=== PATIENT | male | born 1975 | race African-American/Black ===

== ENCOUNTER 2018-10-27 16:22 | Emergency (ER) | payer OTHER, SELFPAY ==
[~2018-10-27] VITALS: Ht 180.3 cm; Wt 124.1 kg
[2018-10-27 16:30] VITALS: BP 141/84
[2018-10-27] MEDS ORDERED: FAMO20 PO (16:38)
[2018-10-27] MEDS ORDERED: AMLO-512 PO (16:38)
[2018-10-27] MEDS ORDERED: MECL-111 PO (16:38)
[2018-10-27] MEDS ORDERED: TRAZ-219 PO (16:38)
[2018-10-27] MEDS ORDERED: LISI-661 PO (16:38)
[2018-10-27] MEDS ORDERED: ESCI10TA PO (16:38)
[2018-10-27] MEDS ORDERED: ATOR40TA28 PO (16:38)
[2018-10-27] MEDS ORDERED: METO25XL PO (16:38)
[2018-10-27] MEDS ORDERED: CLON-570 PO (16:38)
[2018-10-27 17:16] LABS: ANION GAP 7 mmol/L (8-16); CALCIUM, TOTAL 9.5 mg/dL (8.8-10.5); CARBON DIOXIDE 29 mmol/L (22-29); CHLORIDE 104 mmol/L (98-107); GLOMERULAR FILTR. RATE CALC > 60 mL/min (>60); GLUCOSE,RANDOM 95 mg/dL (70-110); POTASSIUM 3.7 mmol/L (3.5-5.1); SODIUM SERUM 140 mmol/L (136-145); UREA NITROGEN, BLOOD 12 mg/dL (7-18)
[2018-10-27 17:22] LABS: ALANINE AMINOTRANSFERASE 37 U/L (12-78); ALBUMIN 3.3 g/dL (3.4-5.0); ALKALINE PHOSPHATASE 140 U/L (46-116); ASPARTATE AMINOTRANSFERASE 36 U/L (15-37); BILIRUBIN,TOTAL 0.2 mg/dL (0.1-1.0); TOTAL PROTEIN, SERUM 8.1 g/dL (6.4-8.2)
[2018-10-27 17:24] LABS: BASOPHILS % (AUTO) 0.5 % (0.0-2.0); HEMATOCRIT 40.7 % (41-53); HEMOGLOBIN 13.4 g/dL (13.5-17.5); LYMPHOCYTES # (AUTO) 3.5 K/uL (1.0-4.8); LYMPHOCYTES % (AUTO) 46.4 % (22.0-44.0); MEAN CORPUSCULAR HEMOGLOBIN 26.8 pg (26.0-34.0); MEAN CORPUSCULAR HGB CONC 32.8 G/dL (31.0-37.0); MEAN CORPUSCULAR VOLUME 82 fL (80-100); MONOCYTES # (AUTO) 0.4 K/uL (0.1-1.0); MONOCYTES % (AUTO) 5.4 % (2.0-9.0); NEUTROPHILS # (AUTO) 3.4 K/uL (1.8-7.7); NEUTROPHILS % (AUTO) 44.7 % (40.0-70.0); PLATELET COUNT (AUTO) 212 K/uL (150-450); RED BLOOD CELL COUNT(AUTO) 4.99 MIL/uL (4.50-5.90); RED CELL DISTRIBUTION WIDTH 17.5 % (11.5-14.5)
== END 2018-10-27 20:15 | disposition left against medical advice (07) ==
LOC: EMS 16:22
DX: R07.9 Chest pain, unspecified (principal); Z53.21 Procedure and treatment not carried out due to patient leaving prior to being seen by health care provider
CPT/HCPCS: 93005

== ENCOUNTER 2019-04-26 15:48 | Emergency (ER) | payer OTHER ==
[~2019-04-26] VITALS: Ht 180.3 cm; Wt 131.8 kg
[~2019-04-26 15:48] MED LIST: AMLO10TA7 PO; ATOR40TA28 PO; CLON-570 PO; ESCI10TA PO; FAMO20 PO; LISI-661 PO; MECL-111 PO; METO25XL PO; TRAZ-252 PO
[2019-04-26] MEDS ORDERED: FURO20 PO (16:20)
[2019-04-26] MEDS ORDERED: OMEP20 PO (16:20)
[2019-04-26] MEDS ORDERED: OXYC-530 PO (16:20)
[2019-04-26] MEDS ORDERED: ALPR0.255 PO (16:20)
[2019-04-26] MEDS ORDERED: MONT10TA21 PO (16:20)
[2019-04-26 19:16] VITALS: BP 132/89
[2019-04-26] MEDS: OxyCODONE HCL 5 MG IR TABLET PO ONE (19:21)
== END 2019-04-26 19:21 | disposition home or self-care (01) ==
LOC: EMS 15:48
DX: S86.811A Strain of other muscle(s) and tendon(s) at lower leg level, right leg, initial encounter (principal); S76.311A Strain of muscle, fascia and tendon of the posterior muscle group at thigh level, right thigh, initial encounter; M25.561 Pain in right knee; I10 Essential (primary) hypertension; F17.210 Nicotine dependence, cigarettes, uncomplicated; Z79.899 Other long term (current) drug therapy; X50.9XXA Other and unspecified overexertion or strenuous movements or postures, initial encounter; Y93.89 Activity, other specified; Y92.89 Other specified places as the place of occurrence of the external cause; Y99.8 Other external cause status
CPT/HCPCS: 99406

== ENCOUNTER 2019-04-28 21:57 | Emergency (ER) | payer OTHER ==
[~2019-04-28 21:57] MED LIST changes: +ALPR0.255 PO; -ESCI10TA PO; -FAMO20 PO; +FURO20 PO; +MONT10TA21 PO; +OMEP20 PO; +OXYC-530 PO
== END 2019-04-28 22:30 | disposition left against medical advice (07) ==
LOC: EMS 21:58
DX: M79.606 Pain in leg, unspecified (principal); Z53.21 Procedure and treatment not carried out due to patient leaving prior to being seen by health care provider

== ENCOUNTER 2021-08-03 09:52 | Inpatient (IN) | payer OTHER ==
[~2021-08-03] VITALS: Ht 175.3 cm; Wt 132.0 kg
[~2021-08-03 09:52] MED LIST changes: +AMLO-258 PO; -AMLO10TA7 PO; -CLON-570 PO; +CLON0.1T2 PO; -LISI-661 PO; +LISI-893 PO; -MECL-111 PO; +MECL-160 PO; +MONT-35 PO; -MONT10TA21 PO; -OXYC-530 PO; +OXYC1TAB6 PO
[2021-08-03 10:32] LABS: BASOPHILS % (AUTO) 0.8 % (0.0-2.0); EOSINOPHILS % (AUTO) 1.7 % (1.0-6.0); HEMATOCRIT 40.9 % (41-53); HEMOGLOBIN 13.2 g/dL (13.5-17.5); LYMPHOCYTES # (AUTO) 2.1 K/uL (1.0-4.8); LYMPHOCYTES % (AUTO) 36.1 % (22.0-44.0); MEAN CORPUSCULAR HEMOGLOBIN 27.2 pg (26.0-34.0); MEAN CORPUSCULAR HGB CONC 32.3 G/dL (31.0-37.0); MEAN CORPUSCULAR VOLUME 84 fL (80-100); MONOCYTES # (AUTO) 0.4 K/uL (0.1-1.0); MONOCYTES % (AUTO) 6.6 % (2.0-9.0); NEUTROPHILS # (AUTO) 3.2 K/uL (1.8-7.7); NEUTROPHILS % (AUTO) 54.8 % (40.0-70.0); PLATELET COUNT (AUTO) 224 K/uL (150-450); RED BLOOD CELL COUNT(AUTO) 4.85 MIL/uL (4.50-5.90)
[2021-08-03 10:42] LABS: ANION GAP 11 mmol/L (8-16); CALCIUM, TOTAL 9.1 mg/dL (8.8-10.5); CARBON DIOXIDE 27 mmol/L (22-29); CHLORIDE 105 mmol/L (98-107); CREATININE 1.29 mg/dL (0.60-1.30); GLOMERULAR FILTR. RATE CALC > 60 mL/min (>60); GLUCOSE,RANDOM 102 mg/dL (70-110); POTASSIUM 3.6 mmol/L (3.5-5.1); SODIUM SERUM 143 mmol/L (136-145); UREA NITROGEN, BLOOD 8 mg/dL (7-18)
[2021-08-03 10:48] LABS: ALANINE AMINOTRANSFERASE 38 U/L (12-78); ALBUMIN 3.1 g/dL (3.4-5.0); ALKALINE PHOSPHATASE 125 U/L (46-116); ASPARTATE AMINOTRANSFERASE 87 U/L (15-37); BILIRUBIN,TOTAL 0.3 mg/dL (0.1-1.0); LIPASE 70 U/L (73-393)
[2021-08-03 11:05] LABS: B-TYPE NATRIURETIC PEPTIDE 7 pg/mL (0-100)
[2021-08-03] MEDS ORDERED: KETOROLAC TROMETHAMINE 30 MG/ML VIAL IVP ONE (11:30)
[2021-08-03] MEDS ORDERED: ONDANSETRON HCL 4 MG/2 ML VIAL IVP ONE ×2 (11:30→14:00)
[2021-08-03] MEDS ORDERED: ACETAMINOPHEN 500 MG TABLET PO ONE (11:30)
[2021-08-03] MEDS ORDERED: MECLIZINE HCL 25 MG TABLET PO ONE (11:30)
[2021-08-03] MEDS ORDERED: MORPHINE SULFATE 4 MG/ML SYRINGE IVP ONE (14:00)
[2021-08-03] MEDS ORDERED: ASPIRIN 325 MG TABLET PO ONE (14:00)
[2021-08-03] MEDS ORDERED: ACETAMINOPHEN 325 MG TABLET PO PRN (14:00)
[2021-08-03] MEDS ORDERED: ONDANSETRON HCL 4 MG/2 ML VIAL IVP PRN (14:00)
[2021-08-03] MEDS ORDERED: 0.9% SODIUM CHLORIDE 10 ML SYRINGE IVP PRN (14:00)
[2021-08-03] MEDS: METOPROLOL SUCCINATE 25 MG ER TABLET PO SCH (14:42)
[2021-08-03 15:08] LABS: COVID AG,FIA SOURCE NASOPHARYNGEAL
[2021-08-03] MEDS ORDERED: NITROGLYCERIN 2% (1 GM=INCH) PACKET TP ONE (16:00)
[2021-08-03 16:37] LABS: APPEARANCE,URINE CLEAR (CLEAR); GLUCOSE, URINE (UA) NEGATIVE (NEGATIVE); KETONES,URINE 15 mg/dL (NEGATIVE); LEUKOCYTE ESTERASE ,URINE NEGATIVE (NEGATIVE); NITRATE,URINE NEGATIVE (NEGATIVE); OCCULT BLOOD,URINE NEGATIVE (NEGATIVE); PROTEIN,URINE NEGATIVE (NEGATIVE)
[2021-08-03 16:39] LABS: BILIRUBIN,URINE PRELIM. POSITIVE (NEGATIVE)
[2021-08-03 16:43] LABS: BACTERIA,URINE None Seen /HPF (None Seen); RBC,URINE None Seen /HPF (0-2); WBC,URINE None Seen /HPF (0-5)
[2021-08-03 16:44] LABS: AMPHET/METH SCREEN,URINE NEGATIVE (NEGATIVE); BARBITURATE SCREEN, URINE NEGATIVE (NEGATIVE); BENZODIAZEPINES SCREEN,URINE POSITIVE (NEGATIVE); CANNABINOID SCREEN,URINE POSITIVE (NEGATIVE); COCAINE SCREEN,URINE NEGATIVE (NEGATIVE); METHADONE SCREEN, URINE NEGATIVE (NEGATIVE); OPIATE SCREEN,URINE NEGATIVE (NEGATIVE)
[2021-08-03 16:45] LABS: PHENCYCLIDINE SCREEN,URINE POSITIVE (NEGATIVE)
[2021-08-03 17:04] VITALS: BP 144/102
[2021-08-03 20:35] VITALS: BP 141/77
[2021-08-03] MEDS: TraZODone HCL 50 MG TABLET PO SCH (21:42)
[2021-08-04] VITALS (7 sets, daily range): BP systolic 127–149; BP diastolic 76–96
[2021-08-04] MEDS: LISINOPRIL 10 MG TABLET PO SCH (08:28)
[2021-08-04] MEDS: OMEPRAZOLE 20 MG CAPSULE PO SCH (08:29)
[2021-08-04] MEDS: ATORVASTATIN CALCIUM 40 MG TABLET PO SCH (08:29)
[2021-08-04] MEDS: METOPROLOL SUCCINATE 25 MG ER TABLET PO SCH (08:29)
[2021-08-04] MEDS: AmLODIPine BESYLATE 10 MG TABLET PO SCH (08:29)
[2021-08-04] MEDS: MONTELUKAST SODIUM 10 MG TABLET PO SCH (08:29)
[2021-08-04] MEDS ORDERED: CloNIDine HCL 0.1 MG TABLET PO ONE (15:45)
[2021-08-04] MEDS ORDERED: ALPR0.255 PO (16:35)
[2021-08-04] MEDS: MECLIZINE HCL 25 MG TABLET PO PRN (17:47)
[2021-08-04] MEDS: CloNIDine HCL 0.1 MG TABLET PO SCH ×2 (17:47→20:34)
[2021-08-04] MEDS: TraZODone HCL 50 MG TABLET PO SCH (20:34)
[2021-08-04] MEDS: ALPRAZolam 0.25 MG TABLET PO SCH (20:34)
[2021-08-05 07:05] VITALS: BP 134/84
[2021-08-05] MEDS: ATORVASTATIN CALCIUM 40 MG TABLET PO SCH (08:49)
[2021-08-05] MEDS: OMEPRAZOLE 20 MG CAPSULE PO SCH (08:49)
[2021-08-05] MEDS: AmLODIPine BESYLATE 10 MG TABLET PO SCH (08:49)
[2021-08-05] MEDS: CloNIDine HCL 0.1 MG TABLET PO SCH ×3 (08:50→20:16)
[2021-08-05] MEDS: ALPRAZolam 0.25 MG TABLET PO SCH ×2 (08:50→20:16)
[2021-08-05] MEDS: LISINOPRIL 10 MG TABLET PO SCH (08:50)
[2021-08-05] MEDS: FUROSEMIDE 20 MG TABLET PO SCH (08:50)
[2021-08-05] MEDS: MONTELUKAST SODIUM 10 MG TABLET PO SCH (08:50)
[2021-08-05] MEDS: METOPROLOL SUCCINATE 25 MG ER TABLET PO SCH (08:50)
[2021-08-05 11:36] VITALS: BP 119/74
[2021-08-05 15:41] VITALS: BP 129/94
[2021-08-05] MEDS: ACETAMINOPHEN 325 MG TABLET PO PRN (15:50)
[2021-08-05] MEDS: TraZODone HCL 50 MG TABLET PO SCH (20:16)
[2021-08-05 20:21] VITALS: BP 144/97
[2021-08-06 07:41] VITALS: BP 131/78
[2021-08-06] MEDS: CloNIDine HCL 0.1 MG TABLET PO SCH ×3 (09:15→19:59)
[2021-08-06] MEDS: LISINOPRIL 10 MG TABLET PO SCH (09:15)
[2021-08-06] MEDS: OMEPRAZOLE 20 MG CAPSULE PO SCH (09:15)
[2021-08-06] MEDS: AmLODIPine BESYLATE 10 MG TABLET PO SCH (09:15)
[2021-08-06] MEDS: ATORVASTATIN CALCIUM 40 MG TABLET PO SCH (09:15)
[2021-08-06] MEDS: ALPRAZolam 0.25 MG TABLET PO SCH (09:15)
[2021-08-06] MEDS: FUROSEMIDE 20 MG TABLET PO SCH (09:15)
[2021-08-06] MEDS: METOPROLOL SUCCINATE 25 MG ER TABLET PO SCH (09:20)
[2021-08-06] MEDS: MECLIZINE HCL 25 MG TABLET PO PRN (09:20)
[2021-08-06] MEDS: MONTELUKAST SODIUM 10 MG TABLET PO SCH (09:20)
[2021-08-06 15:27] VITALS: BP 131/75
[2021-08-06] MEDS: TraZODone HCL 50 MG TABLET PO SCH (19:59)
[2021-08-06] MEDS: ACETAMINOPHEN 325 MG TABLET PO PRN (20:00)
[2021-08-06 20:56] VITALS: BP 118/70
[2021-08-07 04:57] VITALS: BP 133/72
[2021-08-07 08:11] VITALS: BP 137/75
[2021-08-07] MEDS: CloNIDine HCL 0.1 MG TABLET PO SCH ×3 (08:14→21:08)
[2021-08-07] MEDS: METOPROLOL SUCCINATE 25 MG ER TABLET PO SCH (08:15)
[2021-08-07] MEDS: OMEPRAZOLE 20 MG CAPSULE PO SCH (08:15)
[2021-08-07] MEDS: ATORVASTATIN CALCIUM 40 MG TABLET PO SCH (08:15)
[2021-08-07] MEDS: FUROSEMIDE 20 MG TABLET PO SCH (08:15)
[2021-08-07] MEDS: AmLODIPine BESYLATE 10 MG TABLET PO SCH (08:15)
[2021-08-07] MEDS: MONTELUKAST SODIUM 10 MG TABLET PO SCH (08:15)
[2021-08-07] MEDS: LISINOPRIL 10 MG TABLET PO SCH (08:15)
[2021-08-07 16:24] VITALS: BP 149/104
[2021-08-07 16:57] VITALS: BP 142/69
[2021-08-07 19:59] VITALS: BP 125/75
[2021-08-07] MEDS: TraZODone HCL 50 MG TABLET PO SCH (21:08)
[2021-08-08 05:07] VITALS: BP 123/73
[2021-08-08 06:23] LABS: BASOPHILS % (AUTO) 0.2 % (0.0-2.0); EOSINOPHILS % (AUTO) 1.6 % (1.0-6.0); HEMATOCRIT 36.6 % (41-53); HEMOGLOBIN 11.8 g/dL (13.5-17.5); LYMPHOCYTES # (AUTO) 2.6 K/uL (1.0-4.8); LYMPHOCYTES % (AUTO) 36.1 % (22.0-44.0); MEAN CORPUSCULAR HEMOGLOBIN 27.1 pg (26.0-34.0); MEAN CORPUSCULAR HGB CONC 32.2 G/dL (31.0-37.0); MEAN CORPUSCULAR VOLUME 84 fL (80-100); MONOCYTES # (AUTO) 0.6 K/uL (0.1-1.0); MONOCYTES % (AUTO) 7.7 % (2.0-9.0); NEUTROPHILS % (AUTO) 54.4 % (40.0-70.0); PLATELET COUNT (AUTO) 232 K/uL (150-450); RED BLOOD CELL COUNT(AUTO) 4.35 MIL/uL (4.50-5.90); RED CELL DISTRIBUTION WIDTH 14.7 % (11.5-14.5)
[2021-08-08 06:41] LABS: ALANINE AMINOTRANSFERASE 31 U/L (12-78); ALBUMIN 2.8 g/dL (3.4-5.0); ALKALINE PHOSPHATASE 103 U/L (46-116); ANION GAP 4 mmol/L (8-16); ASPARTATE AMINOTRANSFERASE 29 U/L (15-37); BILIRUBIN,TOTAL 0.1 mg/dL (0.1-1.0); CALCIUM, TOTAL 8.8 mg/dL (8.8-10.5); CARBON DIOXIDE 31 mmol/L (22-29); CHLORIDE 106 mmol/L (98-107); GLOMERULAR FILTR. RATE CALC > 60 mL/min (>60); GLUCOSE,RANDOM 113 mg/dL (70-110); POTASSIUM 4.3 mmol/L (3.5-5.1); SODIUM SERUM 141 mmol/L (136-145); TOTAL PROTEIN, SERUM 7.2 g/dL (6.4-8.2); UREA NITROGEN, BLOOD 12 mg/dL (7-18)
[2021-08-08 07:56] VITALS: BP 133/66
[2021-08-08] MEDS: CloNIDine HCL 0.1 MG TABLET PO SCH ×3 (10:12→21:15)
[2021-08-08] MEDS: OMEPRAZOLE 20 MG CAPSULE PO SCH (10:12)
[2021-08-08] MEDS: FUROSEMIDE 20 MG TABLET PO SCH (10:13)
[2021-08-08] MEDS: AmLODIPine BESYLATE 10 MG TABLET PO SCH (10:13)
[2021-08-08] MEDS: ATORVASTATIN CALCIUM 40 MG TABLET PO SCH (10:13)
[2021-08-08] MEDS: METOPROLOL SUCCINATE 25 MG ER TABLET PO SCH (10:13)
[2021-08-08] MEDS: LISINOPRIL 10 MG TABLET PO SCH (10:13)
[2021-08-08] MEDS: MONTELUKAST SODIUM 10 MG TABLET PO SCH (10:14)
[2021-08-08 11:29] VITALS: BP 135/92
[2021-08-08 15:34] VITALS: BP 138/73
[2021-08-08 20:14] VITALS: BP 111/68
[2021-08-08] MEDS: TraZODone HCL 50 MG TABLET PO SCH (21:15)
[2021-08-09 05:21] VITALS: BP 121/62
[2021-08-09 06:15] LABS: BASOPHILS % (AUTO) 0.3 % (0.0-2.0); EOSINOPHILS % (AUTO) 2.1 % (1.0-6.0); HEMATOCRIT 38.6 % (41-53); HEMOGLOBIN 12.2 g/dL (13.5-17.5); LYMPHOCYTES # (AUTO) 2.6 K/uL (1.0-4.8); LYMPHOCYTES % (AUTO) 39.1 % (22.0-44.0); MEAN CORPUSCULAR HEMOGLOBIN 26.7 pg (26.0-34.0); MEAN CORPUSCULAR HGB CONC 31.7 G/dL (31.0-37.0); MEAN CORPUSCULAR VOLUME 84 fL (80-100); MONOCYTES # (AUTO) 0.5 K/uL (0.1-1.0); MONOCYTES % (AUTO) 7.8 % (2.0-9.0); NEUTROPHILS # (AUTO) 3.4 K/uL (1.8-7.7); NEUTROPHILS % (AUTO) 50.7 % (40.0-70.0); PLATELET COUNT (AUTO) 235 K/uL (150-450); RED BLOOD CELL COUNT(AUTO) 4.58 MIL/uL (4.50-5.90); RED CELL DISTRIBUTION WIDTH 14.8 % (11.5-14.5)
[2021-08-09 06:34] LABS: ALANINE AMINOTRANSFERASE 28 U/L (12-78); ALBUMIN 2.8 g/dL (3.4-5.0); ALKALINE PHOSPHATASE 100 U/L (46-116); ANION GAP 7 mmol/L (8-16); ASPARTATE AMINOTRANSFERASE 28 U/L (15-37); BILIRUBIN,TOTAL 0.2 mg/dL (0.1-1.0); CALCIUM, TOTAL 8.9 mg/dL (8.8-10.5); CARBON DIOXIDE 31 mmol/L (22-29); CHLORIDE 104 mmol/L (98-107); CREATININE 1.22 mg/dL (0.60-1.30); GLOMERULAR FILTR. RATE CALC > 60 mL/min (>60); GLUCOSE,RANDOM 100 mg/dL (70-110); POTASSIUM 4.3 mmol/L (3.5-5.1); SODIUM SERUM 142 mmol/L (136-145); TOTAL PROTEIN, SERUM 7.3 g/dL (6.4-8.2); UREA NITROGEN, BLOOD 11 mg/dL (7-18)
[2021-08-09 07:35] VITALS: BP 132/82
[2021-08-09] MEDS: METOPROLOL SUCCINATE 25 MG ER TABLET PO SCH (08:29)
[2021-08-09] MEDS: LISINOPRIL 10 MG TABLET PO SCH (08:29)
[2021-08-09] MEDS: FUROSEMIDE 20 MG TABLET PO SCH (08:30)
[2021-08-09] MEDS: OMEPRAZOLE 20 MG CAPSULE PO SCH (08:30)
[2021-08-09] MEDS: AmLODIPine BESYLATE 10 MG TABLET PO SCH (08:30)
[2021-08-09] MEDS: MONTELUKAST SODIUM 10 MG TABLET PO SCH (08:30)
[2021-08-09] MEDS: ATORVASTATIN CALCIUM 40 MG TABLET PO SCH (08:30)
[2021-08-09] MEDS: CloNIDine HCL 0.1 MG TABLET PO SCH ×3 (08:31→20:11)
[2021-08-09] MEDS ORDERED: ALBUTEROL SULFATE HFA 90 MCG/PUFF 8 GM INHALER IH PRN (10:30)
[2021-08-09] MEDS ORDERED: INFLUENZA VIRUS VACCINE QVS 2021-22 (6MO+)/PF 60 MCG/0.5 ML SYRINGE IM. ONE (14:00)
[2021-08-09 15:24] VITALS: BP 133/71
[2021-08-09] MEDS: BECLOMETHASONE DIPR HFA 40 MCG/PUFF 10.6 GM INHALER IH SCH (20:11)
[2021-08-09] MEDS: TraZODone HCL 50 MG TABLET PO SCH (20:11)
[2021-08-09] MEDS: ACETAMINOPHEN 325 MG TABLET PO PRN (20:49)
[2021-08-09 20:55] VITALS: BP 124/63
[2021-08-10 04:38] VITALS: BP 137/84
[2021-08-10 07:31] VITALS: BP 117/80
[2021-08-10] MEDS: LISINOPRIL 10 MG TABLET PO SCH (08:14)
[2021-08-10] MEDS: MONTELUKAST SODIUM 10 MG TABLET PO SCH (08:15)
[2021-08-10] MEDS: BECLOMETHASONE DIPR HFA 40 MCG/PUFF 10.6 GM INHALER IH SCH (08:15)
[2021-08-10] MEDS: METOPROLOL SUCCINATE 25 MG ER TABLET PO SCH (08:16)
[2021-08-10] MEDS: OMEPRAZOLE 20 MG CAPSULE PO SCH (08:16)
[2021-08-10] MEDS: ATORVASTATIN CALCIUM 40 MG TABLET PO SCH (08:16)
[2021-08-10] MEDS: CloNIDine HCL 0.1 MG TABLET PO SCH (08:17)
[2021-08-10] MEDS: AmLODIPine BESYLATE 10 MG TABLET PO SCH (08:17)
[2021-08-10] MEDS: FUROSEMIDE 20 MG TABLET PO SCH (08:17)
[2021-08-10] MEDS ORDERED: PNEUMOCOCCAL VACCINE POLYVALENT 0.5 ML VIAL [PPSV23] IM. ONE (13:30)
== END 2021-08-10 11:34 | disposition home or self-care (01) | DRG 111 ==
LOC: EMS 09:52 → 5S 14:41 → 6N 08-05 11:35
PROVIDERS: ADMIT Hospitalist; ATTEND Hospitalist
PROC: 5A09357 Assistance with Respiratory Ventilation, Less than 24 Consecutive Hours, Continuous Positive Airway Pressure (ICD-10-PCS; principal; 2021-08-10)
DX: R42 Dizziness and giddiness (principal); I42.9 Cardiomyopathy, unspecified; I49.5 Sick sinus syndrome; E44.0 Moderate protein-calorie malnutrition; I50.22 Chronic systolic (congestive) heart failure; I11.0 Hypertensive heart disease with heart failure; F17.210 Nicotine dependence, cigarettes, uncomplicated; E66.01 Morbid (severe) obesity due to excess calories; G47.33 Obstructive sleep apnea (adult) (pediatric); F19.10 Other psychoactive substance abuse, uncomplicated; Z20.822 Contact with and (suspected) exposure to COVID-19; F41.9 Anxiety disorder, unspecified; Z68.41 Body mass index [BMI] 40.0-44.9, adult; Z95.0 Presence of cardiac pacemaker; Z59.00 Homelessness unspecified; Z91.013 Allergy to seafood
CPT/HCPCS: 70450; 71045; 73700; 80053; 81001; 83690; 83880; 84484; 85025; 93005; 93306; 93880; 94660; 97116; 97162; 97530; 99291; J1885; J2270; J2405; J3535; 36415-L1; 36415-TC

== ENCOUNTER 2021-08-19 07:36 | Emergency (ER) | payer OTHER ==
[~2021-08-19] VITALS: Ht 180.3 cm; Wt 136.0 kg
[~2021-08-19 07:36] MED LIST changes: -ALPR0.255 PO; -AMLO-258 PO; -OXYC1TAB6 PO; -TRAZ-252 PO
[2021-08-19 08:21] LABS: BASOPHILS % (AUTO) 0.6 % (0.0-2.0); HEMATOCRIT 38.4 % (41-53); HEMOGLOBIN 12.2 g/dL (13.5-17.5); LYMPHOCYTES # (AUTO) 2.5 K/uL (1.0-4.8); LYMPHOCYTES % (AUTO) 36.9 % (22.0-44.0); MEAN CORPUSCULAR HGB CONC 31.8 G/dL (31.0-37.0); MEAN CORPUSCULAR VOLUME 85 fL (80-100); MONOCYTES # (AUTO) 0.4 K/uL (0.1-1.0); NEUTROPHILS # (AUTO) 3.8 K/uL (1.8-7.7); NEUTROPHILS % (AUTO) 55.5 % (40.0-70.0); PLATELET COUNT (AUTO) 202 K/uL (150-450); RED BLOOD CELL COUNT(AUTO) 4.54 MIL/uL (4.50-5.90)
[2021-08-19 08:30] LABS: ANION GAP 6 mmol/L (8-16); CALCIUM, TOTAL 9.1 mg/dL (8.8-10.5); CARBON DIOXIDE 30 mmol/L (22-29); CHLORIDE 104 mmol/L (98-107); CREATININE 1.34 mg/dL (0.60-1.30); GLOMERULAR FILTR. RATE CALC > 60 mL/min (>60); GLUCOSE,RANDOM 88 mg/dL (70-110); POTASSIUM 4.7 mmol/L (3.5-5.1); SODIUM SERUM 140 mmol/L (136-145); UREA NITROGEN, BLOOD 17 mg/dL (7-18)
[2021-08-19] MEDS ORDERED: HYDROCODONE/ACETAMINOPHEN 5-325 MG TABLET PO ONE (08:45)
[2021-08-19 09:20] VITALS: BP 127/82
== END 2021-08-19 09:56 | disposition home or self-care (01) ==
LOC: EMS 07:36
DX: S90.121A Contusion of right lesser toe(s) without damage to nail, initial encounter (principal); R06.02 Shortness of breath; R07.89 Other chest pain; I48.91 Unspecified atrial fibrillation; J45.909 Unspecified asthma, uncomplicated; I10 Essential (primary) hypertension; F17.210 Nicotine dependence, cigarettes, uncomplicated; F12.90 Cannabis use, unspecified, uncomplicated; F19.90 Other psychoactive substance use, unspecified, uncomplicated; Z79.899 Other long term (current) drug therapy; Z88.8 Allergy status to other drugs, medicaments and biological substances; Z91.013 Allergy to seafood; W19.XXXA Unspecified fall, initial encounter; Y93.89 Activity, other specified; Y92.89 Other specified places as the place of occurrence of the external cause; Y99.8 Other external cause status
CPT/HCPCS: 71045; 80048; 84484; 85025; 93005; 99285; 36415-L1; 36415-TC

== ENCOUNTER 2021-09-09 16:15 | Inpatient (IN) | payer OTHER ==
[~2021-09-09] VITALS: Ht 180.3 cm; Wt 131.0 kg
[2021-09-09] MEDS ORDERED: SODIUM CHLORIDE 0.9% 1,000 ML IV ONE ×2 (16:45→17:15)
[2021-09-09] MEDS ORDERED: LORazepam 2 MG/ML VIAL IVP ONE ×2 (16:45→21:15)
[2021-09-09 16:55] LABS: BASOPHILS % (AUTO) 0.3 % (0.0-2.0); EOSINOPHILS % (AUTO) 0 % (1.0-6.0); HEMATOCRIT 37.2 % (41-53); HEMOGLOBIN 12.3 g/dL (13.5-17.5); LYMPHOCYTES # (AUTO) 0.9 K/uL (1.0-4.8); LYMPHOCYTES % (AUTO) 5.6 % (22.0-44.0); MEAN CORPUSCULAR HEMOGLOBIN 26.9 pg (26.0-34.0); MEAN CORPUSCULAR VOLUME 82 fL (80-100); MONOCYTES # (AUTO) 0.6 K/uL (0.1-1.0); MONOCYTES % (AUTO) 3.7 % (2.0-9.0); NEUTROPHILS # (AUTO) 15.1 K/uL (1.8-7.7); PLATELET COUNT (AUTO) 192 K/uL (150-450); RED BLOOD CELL COUNT(AUTO) 4.56 MIL/uL (4.50-5.90); RED CELL DISTRIBUTION WIDTH 14.9 % (11.5-14.5)
[2021-09-09 16:57] LABS: NEUTROPHILS % (AUTO) 90.4 % (40.0-70.0)
[2021-09-09 17:04] LABS: ANION GAP 11 mmol/L (8-16); CALCIUM, TOTAL 9.5 mg/dL (8.8-10.5); CARBON DIOXIDE 25 mmol/L (22-29); CHLORIDE 98 mmol/L (98-107); CREATININE 1.79 mg/dL (0.60-1.30); GLOMERULAR FILTR. RATE CALC 50 mL/min (>60); GLUCOSE,RANDOM 83 mg/dL (70-110); POTASSIUM 3.9 mmol/L (3.5-5.1); SODIUM SERUM 134 mmol/L (136-145); UREA NITROGEN, BLOOD 19 mg/dL (7-18)
[2021-09-09 17:10] LABS: PLATELET MORPHOLOGY COMMENT LARGE PLTS PRESENT
[2021-09-09 17:15] LABS: SALICYLATE 3.7 mg/dL (2.8-20.0)
[2021-09-09] MEDS ORDERED: VANCOMYCIN HCL 1.5 GM in DEXTROSE 5%-WATER 250 ML IV ONE (17:15)
[2021-09-09] MEDS ORDERED: CefTRIAXone 1 GM/DEXTROSE 50 ML IV ONE (17:15)
[2021-09-09] MEDS ORDERED: MECLIZINE HCL 25 MG TABLET PO ONE (17:15)
[2021-09-09 17:29] LABS: ALANINE AMINOTRANSFERASE 23 U/L (12-78); ALBUMIN 3.3 g/dL (3.4-5.0); ALKALINE PHOSPHATASE 123 U/L (46-116); ASPARTATE AMINOTRANSFERASE 25 U/L (15-37); BILIRUBIN,TOTAL 0.3 mg/dL (0.1-1.0); CREATINE KINASE, TOTAL ONLY 169 U/L (39-308); THYROID STIMULATING HORMONE 1.58 uIU/mL (0.36-3.74); TOTAL PROTEIN, SERUM 8.1 g/dL (6.4-8.2)
[2021-09-09 17:30] LABS: ACETAMINOPHEN < 2 mcg/mL (10-30)
[2021-09-09] MEDS ORDERED: SODIUM CHLORIDE 0.9% 100 ML ONE (19:08)
[2021-09-09] MEDS ORDERED: IOHEXOL 350 MG/ML 150 ML VIAL ONE (19:08)
[2021-09-09 20:31] LABS: BASOPHILS % (AUTO) 0.5 % (0.0-2.0); EOSINOPHILS % (AUTO) 0.2 % (1.0-6.0); HEMATOCRIT 37.2 % (41-53); HEMOGLOBIN 12.1 g/dL (13.5-17.5); LYMPHOCYTES # (AUTO) 1.5 K/uL (1.0-4.8); LYMPHOCYTES % (AUTO) 8.5 % (22.0-44.0); MEAN CORPUSCULAR HEMOGLOBIN 26.6 pg (26.0-34.0); MEAN CORPUSCULAR HGB CONC 32.4 G/dL (31.0-37.0); MEAN CORPUSCULAR VOLUME 82 fL (80-100); MONOCYTES % (AUTO) 5.5 % (2.0-9.0); NEUTROPHILS # (AUTO) 15.5 K/uL (1.8-7.7); PLATELET COUNT (AUTO) 184 K/uL (150-450); RED BLOOD CELL COUNT(AUTO) 4.54 MIL/uL (4.50-5.90); RED CELL DISTRIBUTION WIDTH 15.4 % (11.5-14.5)
[2021-09-09 20:32] LABS: NEUTROPHILS % (AUTO) 85.3 % (40.0-70.0)
[2021-09-09 20:40] LABS: CALCIUM, TOTAL 8.7 mg/dL (8.8-10.5); CREATININE 1.66 mg/dL (0.60-1.30); POTASSIUM 3.7 mmol/L (3.5-5.1)
[2021-09-09 20:44] LABS: PLATELET MORPHOLOGY COMMENT LARGE PLTS PRESENT
[2021-09-09 20:47] LABS: BILIRUBIN,TOTAL 0.3 mg/dL (0.1-1.0); TOTAL PROTEIN, SERUM 7.6 g/dL (6.4-8.2)
[2021-09-09] MEDS ORDERED: MORPHINE SULFATE 4 MG/ML SYRINGE IVP ONE (21:00)
[2021-09-10] MEDS ORDERED: ACETAMINOPHEN 325 MG TABLET PO PRN (02:00)
[2021-09-10] MEDS ORDERED: LEVOFLOXACIN 750 MG/D5% WATER 150 ML IV ONE (02:00)
[2021-09-10] MEDS ORDERED: ONDANSETRON HCL 4 MG/2 ML VIAL IVP PRN ×2 (02:00→02:30)
[2021-09-10] MEDS ORDERED: 0.9% SODIUM CHLORIDE 10 ML SYRINGE IVP PRN (02:00)
[2021-09-10] MEDS: HEPARIN SODIUM,PORCINE 5,000 UNITS/ML VIAL SQ SCH ×2 (07:28→17:56)
[2021-09-10 08:16] LABS: COVID AG,FIA SOURCE NASAL SWAB
[2021-09-10] MEDS: CloNIDine HCL 0.1 MG TABLET PO SCH ×3 (08:27→21:34)
[2021-09-10] MEDS: FUROSEMIDE 20 MG TABLET PO SCH (08:27)
[2021-09-10] MEDS: ATORVASTATIN CALCIUM 40 MG TABLET PO SCH (08:27)
[2021-09-10] MEDS: LISINOPRIL 10 MG TABLET PO SCH (08:27)
[2021-09-10] MEDS: MECLIZINE HCL 25 MG TABLET PO SCH (08:27)
[2021-09-10] MEDS: OMEPRAZOLE 20 MG CAPSULE PO SCH (08:30)
[2021-09-10] MEDS: MONTELUKAST SODIUM 10 MG TABLET PO SCH (08:56)
[2021-09-10] MEDS: METOPROLOL SUCCINATE 25 MG ER TABLET PO SCH (08:56)
[2021-09-10] MEDS ORDERED: METO-416 PO (11:14)
[2021-09-10] MEDS ORDERED: BACL20TA PO (11:14)
[2021-09-10] MEDS ORDERED: BECL10.62 IH (11:14)
[2021-09-10] MEDS ORDERED: DOCU-350 PO (11:14)
[2021-09-10] MEDS ORDERED: ALBU8HFA IH (11:14)
[2021-09-10] MEDS ORDERED: DILT-72 PO (11:14)
[2021-09-10] MEDS ORDERED: ESCI20TA37 PO (11:14)
[2021-09-10] MEDS ORDERED: FLUT16H NASAL (11:14)
[2021-09-10] MEDS ORDERED: AMLO10TA55 PO (11:14)
[2021-09-10 12:16] LABS: AMPHET/METH SCREEN,URINE POSITIVE (NEGATIVE); BARBITURATE SCREEN, URINE NEGATIVE (NEGATIVE); BENZODIAZEPINES SCREEN,URINE NEGATIVE (NEGATIVE); CANNABINOID SCREEN,URINE NEGATIVE (NEGATIVE); COCAINE SCREEN,URINE NEGATIVE (NEGATIVE); METHADONE SCREEN, URINE NEGATIVE (NEGATIVE); OPIATE SCREEN,URINE NEGATIVE (NEGATIVE)
[2021-09-10 12:18] LABS: PHENCYCLIDINE SCREEN,URINE POSITIVE (NEGATIVE)
[2021-09-10 16:54] VITALS: BP 157/111
[2021-09-10] MEDS ORDERED: SODIUM CHLORIDE 0.9% 500 ML IV ONE (17:38)
[2021-09-10] MEDS: CefTRIAXone 1 GM/DEXTROSE 50 ML IV SCH (17:56)
[2021-09-10 18:45] VITALS: BP 146/83
[2021-09-10 20:05] VITALS: BP 139/83
[2021-09-10] MEDS: AZITHROMYCIN 500 MG/NS 250 ML IV SCH (21:35)
[2021-09-10 23:53] VITALS: BP 143/85
[2021-09-11] MEDS: HEPARIN SODIUM,PORCINE 5,000 UNITS/ML VIAL SQ SCH ×4 (00:57→23:40)
[2021-09-11 04:44] VITALS: BP 146/89
[2021-09-11 06:58] LABS: BASOPHILS % (AUTO) 0.2 % (0.0-2.0); EOSINOPHILS % (AUTO) 0.5 % (1.0-6.0); HEMOGLOBIN 12.9 g/dL (13.5-17.5); LYMPHOCYTES # (AUTO) 2.5 K/uL (1.0-4.8); LYMPHOCYTES % (AUTO) 16.6 % (22.0-44.0); MEAN CORPUSCULAR HEMOGLOBIN 26.8 pg (26.0-34.0); MEAN CORPUSCULAR HGB CONC 32.3 G/dL (31.0-37.0); MEAN CORPUSCULAR VOLUME 83 fL (80-100); MONOCYTES # (AUTO) 0.5 K/uL (0.1-1.0); MONOCYTES % (AUTO) 3.5 % (2.0-9.0); NEUTROPHILS # (AUTO) 11.9 K/uL (1.8-7.7); NEUTROPHILS % (AUTO) 79.2 % (40.0-70.0); PLATELET COUNT (AUTO) 183 K/uL (150-450); RED BLOOD CELL COUNT(AUTO) 4.81 MIL/uL (4.50-5.90); RED CELL DISTRIBUTION WIDTH 15.1 % (11.5-14.5)
[2021-09-11 07:04] LABS: ANION GAP 7 mmol/L (8-16); CALCIUM, TOTAL 9.3 mg/dL (8.8-10.5); CARBON DIOXIDE 28 mmol/L (22-29); CHLORIDE 105 mmol/L (98-107); CREATININE 1.28 mg/dL (0.60-1.30); GLOMERULAR FILTR. RATE CALC > 60 mL/min (>60); GLUCOSE,RANDOM 80 mg/dL (70-110); POTASSIUM 3.9 mmol/L (3.5-5.1); SODIUM SERUM 140 mmol/L (136-145); UREA NITROGEN, BLOOD 15 mg/dL (7-18)
[2021-09-11 07:31] VITALS: BP 161/90
[2021-09-11] MEDS: FUROSEMIDE 20 MG TABLET PO SCH (08:06)
[2021-09-11] MEDS: ATORVASTATIN CALCIUM 40 MG TABLET PO SCH (08:06)
[2021-09-11] MEDS: OMEPRAZOLE 20 MG CAPSULE PO SCH (08:06)
[2021-09-11] MEDS: ACETAMINOPHEN 325 MG TABLET PO PRN ×3 (08:07→21:58)
[2021-09-11] MEDS: MONTELUKAST SODIUM 10 MG TABLET PO SCH (08:07)
[2021-09-11] MEDS: METOPROLOL SUCCINATE 25 MG ER TABLET PO SCH (08:08)
[2021-09-11] MEDS: CloNIDine HCL 0.1 MG TABLET PO SCH ×3 (08:08→21:00)
[2021-09-11] MEDS: LISINOPRIL 10 MG TABLET PO SCH (08:08)
[2021-09-11] MEDS: MECLIZINE HCL 25 MG TABLET PO SCH (08:08)
[2021-09-11 11:48] VITALS: BP 134/68
[2021-09-11 15:09] VITALS: BP 142/66
[2021-09-11] MEDS: CefTRIAXone 1 GM/DEXTROSE 50 ML IV SCH (18:25)
[2021-09-11 20:45] VITALS: BP 109/69
[2021-09-11] MEDS: AZITHROMYCIN 500 MG/NS 250 ML IV SCH (21:58)
[2021-09-12] VITALS (7 sets, daily range): BP systolic 118–135; BP diastolic 64–86
[2021-09-12 07:21] LABS: BASOPHILS % (AUTO) 0.5 % (0.0-2.0); EOSINOPHILS % (AUTO) 1.8 % (1.0-6.0); HEMATOCRIT 39.2 % (41-53); LYMPHOCYTES # (AUTO) 2.8 K/uL (1.0-4.8); LYMPHOCYTES % (AUTO) 30.5 % (22.0-44.0); MEAN CORPUSCULAR HEMOGLOBIN 27.5 pg (26.0-34.0); MEAN CORPUSCULAR HGB CONC 33.1 G/dL (31.0-37.0); MEAN CORPUSCULAR VOLUME 83 fL (80-100); MONOCYTES # (AUTO) 0.4 K/uL (0.1-1.0); MONOCYTES % (AUTO) 4.5 % (2.0-9.0); NEUTROPHILS # (AUTO) 5.8 K/uL (1.8-7.7); NEUTROPHILS % (AUTO) 62.7 % (40.0-70.0); PLATELET COUNT (AUTO) 204 K/uL (150-450); RED BLOOD CELL COUNT(AUTO) 4.73 MIL/uL (4.50-5.90)
[2021-09-12 07:48] LABS: ALANINE AMINOTRANSFERASE 20 U/L (12-78); ALBUMIN 2.8 g/dL (3.4-5.0); ALKALINE PHOSPHATASE 106 U/L (46-116); ANION GAP 9 mmol/L (8-16); ASPARTATE AMINOTRANSFERASE 13 U/L (15-37); BILIRUBIN,TOTAL 0.2 mg/dL (0.1-1.0); CALCIUM, TOTAL 9.6 mg/dL (8.8-10.5); CARBON DIOXIDE 28 mmol/L (22-29); CHLORIDE 103 mmol/L (98-107); CREATININE 1.32 mg/dL (0.60-1.30); GLOMERULAR FILTR. RATE CALC > 60 mL/min (>60); GLUCOSE,RANDOM 89 mg/dL (70-110); POTASSIUM 4.2 mmol/L (3.5-5.1); SODIUM SERUM 140 mmol/L (136-145); TOTAL PROTEIN, SERUM 8.4 g/dL (6.4-8.2); UREA NITROGEN, BLOOD 14 mg/dL (7-18)
[2021-09-12] MEDS: OMEPRAZOLE 20 MG CAPSULE PO SCH (09:20)
[2021-09-12] MEDS: ACETAMINOPHEN 325 MG TABLET PO PRN ×3 (09:21→21:03)
[2021-09-12] MEDS: MONTELUKAST SODIUM 10 MG TABLET PO SCH (09:21)
[2021-09-12] MEDS: ATORVASTATIN CALCIUM 40 MG TABLET PO SCH (09:22)
[2021-09-12] MEDS: METOPROLOL SUCCINATE 25 MG ER TABLET PO SCH (09:22)
[2021-09-12] MEDS: CloNIDine HCL 0.1 MG TABLET PO SCH ×3 (09:22→21:03)
[2021-09-12] MEDS: FUROSEMIDE 20 MG TABLET PO SCH (09:22)
[2021-09-12] MEDS: LISINOPRIL 10 MG TABLET PO SCH (09:23)
[2021-09-12] MEDS: HEPARIN SODIUM,PORCINE 5,000 UNITS/ML VIAL SQ SCH ×3 (09:23→23:03)
[2021-09-12] MEDS: MECLIZINE HCL 25 MG TABLET PO SCH (09:23)
[2021-09-12] MEDS ORDERED: AMLO-258 PO (17:29)
[2021-09-12] MEDS ORDERED: METO25XL PO (17:30)
[2021-09-12] MEDS ORDERED: ALBU8HFA IH (17:31)
[2021-09-12] MEDS ORDERED: FURO20 PO (17:32)
[2021-09-12] MEDS: CefTRIAXone 1 GM/DEXTROSE 50 ML IV SCH (18:24)
[2021-09-12] MEDS: AZITHROMYCIN 500 MG/NS 250 ML IV SCH (21:03)
[2021-09-13 04:15] VITALS: BP 129/85
[2021-09-13 07:41] VITALS: BP 126/82
[2021-09-13] MEDS: METOPROLOL SUCCINATE 25 MG ER TABLET PO SCH (08:57)
[2021-09-13] MEDS: CloNIDine HCL 0.1 MG TABLET PO SCH (08:58)
[2021-09-13] MEDS: ATORVASTATIN CALCIUM 40 MG TABLET PO SCH (08:58)
[2021-09-13] MEDS: FUROSEMIDE 20 MG TABLET PO SCH (08:58)
[2021-09-13] MEDS: OMEPRAZOLE 20 MG CAPSULE PO SCH (08:58)
[2021-09-13] MEDS: LISINOPRIL 10 MG TABLET PO SCH (08:58)
[2021-09-13] MEDS: MONTELUKAST SODIUM 10 MG TABLET PO SCH (08:59)
== END 2021-09-13 09:40 | disposition home or self-care (01) | DRG 812 ==
LOC: EMS 16:17 → 5S 09-10 02:16
PROVIDERS: ADMIT Internal Medicine; ATTEND Internal Medicine
DX: T43.621A Poisoning by amphetamines, accidental (unintentional), initial encounter (principal); G92.8 Other toxic encephalopathy; I49.5 Sick sinus syndrome; J18.9 Pneumonia, unspecified organism; R65.10 Systemic inflammatory response syndrome (SIRS) of non-infectious origin without acute organ dysfunction; I11.0 Hypertensive heart disease with heart failure; I50.22 Chronic systolic (congestive) heart failure; G47.33 Obstructive sleep apnea (adult) (pediatric); J45.909 Unspecified asthma, uncomplicated; R42 Dizziness and giddiness; F15.10 Other stimulant abuse, uncomplicated; F16.10 Hallucinogen abuse, uncomplicated; Z20.822 Contact with and (suspected) exposure to COVID-19; I48.91 Unspecified atrial fibrillation; I71.2 Thoracic aortic aneurysm, without rupture; E66.01 Morbid (severe) obesity due to excess calories; Z87.891 Personal history of nicotine dependence; Z95.0 Presence of cardiac pacemaker; Y92.89 Other specified places as the place of occurrence of the external cause; Z79.899 Other long term (current) drug therapy; Z68.41 Body mass index [BMI] 40.0-44.9, adult; Z88.8 Allergy status to other drugs, medicaments and biological substances; Z91.013 Allergy to seafood
CPT/HCPCS: 70450; 71045; 71275; 80048; 80053; 82550; 83605; 83735; 84443; 84484; 85025; 87040; 93005; 93306; 93880; 99285; G0378; G0480; G0481; J0456; J0696; J1644; J1956; J2060; J2270; J2405; J3370; J7030; J7040; J7050; J7060; Q9967; 36415-L1; 36415-TC

== ENCOUNTER 2021-10-25 22:13 | Emergency (ER) | payer OTHER ==
[~2021-10-25] VITALS: Ht 180.3 cm; Wt 135.9 kg
[~2021-10-25 22:13] MED LIST changes: +ALBU8HFA IH; +AMLO-258 PO; +BACL20TA PO; -CLON0.1T2 PO; +DOCU-350 PO; +ESCI20TA37 PO; +FLUT16H NASAL; -LISI-893 PO
[2021-10-25 22:57] VITALS: BP 117/88
[2021-10-26 00:43] LABS: BASOPHILS % (AUTO) 0.5 % (0.0-2.0); EOSINOPHILS % (AUTO) 1.7 % (1.0-6.0); HEMATOCRIT 38.8 % (41-53); HEMOGLOBIN 12.8 g/dL (13.5-17.5); LYMPHOCYTES # (AUTO) 3.5 K/uL (1.0-4.8); LYMPHOCYTES % (AUTO) 46.6 % (22.0-44.0); MEAN CORPUSCULAR HEMOGLOBIN 26.8 pg (26.0-34.0); MEAN CORPUSCULAR VOLUME 81 fL (80-100); MONOCYTES # (AUTO) 0.5 K/uL (0.1-1.0); MONOCYTES % (AUTO) 6.6 % (2.0-9.0); NEUTROPHILS # (AUTO) 3.3 K/uL (1.8-7.7); NEUTROPHILS % (AUTO) 44.6 % (40.0-70.0); PLATELET COUNT (AUTO) 210 K/uL (150-450); RED BLOOD CELL COUNT(AUTO) 4.78 MIL/uL (4.50-5.90); RED CELL DISTRIBUTION WIDTH 14.9 % (11.5-14.5)
[2021-10-26 00:53] LABS: ANION GAP 5 mmol/L (8-16); CALCIUM, TOTAL 9.4 mg/dL (8.8-10.5); CARBON DIOXIDE 32 mmol/L (22-29); CHLORIDE 103 mmol/L (98-107); CREATININE 1.66 mg/dL (0.60-1.30); GLOMERULAR FILTR. RATE CALC 55 mL/min (>60); GLUCOSE,RANDOM 94 mg/dL (70-110); POTASSIUM 3.9 mmol/L (3.5-5.1); SODIUM SERUM 140 mmol/L (136-145); UREA NITROGEN, BLOOD 20 mg/dL (7-18)
[2021-10-26 00:58] LABS: ALANINE AMINOTRANSFERASE 37 U/L (12-78); ALBUMIN 3.5 g/dL (3.4-5.0); ALKALINE PHOSPHATASE 129 U/L (46-116); ASPARTATE AMINOTRANSFERASE 44 U/L (15-37); BILIRUBIN,TOTAL 0.2 mg/dL (0.1-1.0); LIPASE 132 U/L (73-393); TOTAL PROTEIN, SERUM 8.7 g/dL (6.4-8.2)
[2021-10-26] MEDS ORDERED: BECL10.62 IH (03:17)
[2021-10-26] MEDS ORDERED: HYDR50TA36 PO (03:17)
[2021-10-26] MEDS ORDERED: DILT60TA4 PO (03:17)
[2021-10-26] MEDS ORDERED: ESCI-8 PO (03:17)
== END 2021-10-26 04:49 | disposition home or self-care (01) ==
LOC: EMS 22:17
DX: R07.89 Other chest pain (principal); I48.91 Unspecified atrial fibrillation; F19.10 Other psychoactive substance abuse, uncomplicated; N28.9 Disorder of kidney and ureter, unspecified; I10 Essential (primary) hypertension; J45.909 Unspecified asthma, uncomplicated; F12.90 Cannabis use, unspecified, uncomplicated; F15.90 Other stimulant use, unspecified, uncomplicated; F16.90 Hallucinogen use, unspecified, uncomplicated; F17.210 Nicotine dependence, cigarettes, uncomplicated; Z95.0 Presence of cardiac pacemaker; Z88.8 Allergy status to other drugs, medicaments and biological substances; Z79.899 Other long term (current) drug therapy
CPT/HCPCS: 36415; 80053; 83690; 84484; 85025; 93005; 99284; G0480

== ENCOUNTER 2021-11-16 17:30 | Emergency (ER) | payer OTHER ==
[~2021-11-16] VITALS: Ht 180.3 cm; Wt 127.7 kg
[~2021-11-16 17:30] MED LIST changes: -BACL20TA PO; +BECL10.62 IH; +DILT60TA4 PO; +ESCI-8 PO; -ESCI20TA37 PO; +HYDR50TA36 PO; -MECL-160 PO; -METO25XL PO; -MONT-35 PO
[2021-11-16 17:52] VITALS: BP 158/64
[2021-11-16] MEDS ORDERED: LORazepam 2 MG/ML VIAL IM ONE (18:30)
== END 2021-11-16 20:12 | disposition left against medical advice (07) ==
LOC: EMS 17:33
DX: F16.980 Hallucinogen use, unspecified with hallucinogen-induced anxiety disorder (principal); I10 Essential (primary) hypertension; F17.210 Nicotine dependence, cigarettes, uncomplicated; Z79.899 Other long term (current) drug therapy; Z88.8 Allergy status to other drugs, medicaments and biological substances
CPT/HCPCS: 93005; 96372; 99283; J2060

== ENCOUNTER 2021-12-18 13:29 | Observation (INO) | payer OTHER ==
[~2021-12-18] VITALS: Ht 180.3 cm; Wt 126.7 kg
[2021-12-18 13:51] LABS: BASOPHILS % (AUTO) 0.2 % (0.0-2.0); EOSINOPHILS % (AUTO) 1.8 % (1.0-6.0); HEMATOCRIT 34.5 % (41-53); HEMOGLOBIN 11.2 g/dL (13.5-17.5); LYMPHOCYTES # (AUTO) 2.3 K/uL (1.0-4.8); LYMPHOCYTES % (AUTO) 32.5 % (22.0-44.0); MEAN CORPUSCULAR HEMOGLOBIN 26.3 pg (26.0-34.0); MEAN CORPUSCULAR HGB CONC 32.5 G/dL (31.0-37.0); MEAN CORPUSCULAR VOLUME 81 fL (80-100); MONOCYTES # (AUTO) 0.5 K/uL (0.1-1.0); NEUTROPHILS # (AUTO) 4.1 K/uL (1.8-7.7); NEUTROPHILS % (AUTO) 58.5 % (40.0-70.0); PLATELET COUNT (AUTO) 169 K/uL (150-450); RED BLOOD CELL COUNT(AUTO) 4.27 MIL/uL (4.50-5.90); RED CELL DISTRIBUTION WIDTH 16.1 % (11.5-14.5)
[2021-12-18 14:16] LABS: CALCIUM, TOTAL 8.4 mg/dL (8.8-10.5); CREATININE 1.64 mg/dL (0.60-1.30); POTASSIUM 3.6 mmol/L (3.5-5.1)
[2021-12-18 14:22] LABS: ALBUMIN 2.9 g/dL (3.4-5.0); BILIRUBIN,TOTAL 0.2 mg/dL (0.1-1.0); TOTAL PROTEIN, SERUM 6.8 g/dL (6.4-8.2)
[2021-12-18] MEDS ORDERED: SODIUM CHLORIDE 0.9% 1,000 ML IV ONE (15:30)
[2021-12-18] MEDS ORDERED: ASPIRIN 325 MG TABLET PO ONE (15:30)
[2021-12-18] MEDS ORDERED: NITROGLYCERIN 2% (1 GM=INCH) PACKET TP ONE (15:30)
[2021-12-18 15:38] LABS: ABG BASE EXCESS -1.1 mmol/L (-2.0-3.0); ABG HCO3 23.7 mmol/L (22.0-26.0); ABG OXYGEN CONTENT 16.3 mL/dL (15.0-23.0); ABG OXYGEN SATURATION 96.3 % (95.0-98.0); ABG OXYHEMOGLOBIN 94.4 % (94.0-100.0); ABG PCO2 39 mmHg (35-45); ABG PH 7.403 (7.35-7.450); ABG TOTAL HEMOGLOBIN 12.2 G/dL (12.0-18.0); PO2, ARTERIAL BG 85.5 mmHg (88.0-96.0); SOURCE, BLOOD GAS ARTERIAL; TEMPERATURE, FAHRENHEIT, BG 98.1 FAHREN (96.0-98.6)
[2021-12-18 15:39] LABS: O2 DEVICE,BLOOD GAS ROOM AIR (ROOM AIR); SITE, BLOOD GAS LFT RADIAL
[2021-12-18 15:53] LABS: COVID AG,FIA SOURCE NASOPHARYNGEAL
[2021-12-18] MEDS ORDERED: 0.9% SODIUM CHLORIDE 10 ML SYRINGE IVP PRN (16:45)
[2021-12-18] MEDS ORDERED: ONDANSETRON HCL 4 MG/2 ML VIAL IVP PRN ×2 (16:45→18:15)
[2021-12-18] MEDS ORDERED: ACETAMINOPHEN 325 MG TABLET PO PRN ×2 (16:45→18:15)
[2021-12-18 18:11] VITALS: BP 112/56
[2021-12-18] MEDS ORDERED: MAGNESIUM HYDROXIDE SUSPENSION 30 ML UDCUP PO PRN (18:15)
[2021-12-18] MEDS ORDERED: HYDROCODONE/ACETAMINOPHEN 5-325 MG TABLET PO PRN (18:15)
[2021-12-18] MEDS ORDERED: MORPHINE SULFATE 2 MG/ML SYRINGE IVP PRN (18:15)
[2021-12-18] MEDS ORDERED: ZOLPIDEM TARTRATE 5 MG TABLET PO PRN (18:15)
[2021-12-18] MEDS ORDERED: BISACODYL 10 MG RECTAL RECTAL SUPPOSITORY PR PRN (18:15)
[2021-12-18] MEDS ORDERED: ALBUTEROL SULFATE HFA 90 MCG/PUFF 8 GM INHALER IH PRN (18:15)
[2021-12-18] MEDS ORDERED: ESCI20TA87 PO (18:39)
[2021-12-18] MEDS ORDERED: BACL20TA PO (18:39)
[2021-12-18] MEDS ORDERED: QUET150T4 PO (18:39)
[2021-12-18] MEDS ORDERED: METO-416 PO (18:39)
[2021-12-18] MEDS ORDERED: DILT-72 PO (18:39)
[2021-12-18 19:59] VITALS: BP 116/57
[2021-12-18] MEDS: DOCUSATE SODIUM 100 MG CAPSULE PO SCH (21:00)
[2021-12-18] MEDS: BECLOMETHASONE DIPR HFA 80 MCG/PUFF 10.6 GM INHALER IH SCH (21:00)
[2021-12-19 00:06] VITALS: BP 113/53
[2021-12-19] MEDS: HEPARIN SODIUM,PORCINE 5,000 UNITS/ML VIAL SQ SCH ×3 (00:07→16:00)
[2021-12-19 05:51] VITALS: BP 129/64
[2021-12-19 07:20] VITALS: BP 125/64
[2021-12-19] MEDS: BECLOMETHASONE DIPR HFA 80 MCG/PUFF 10.6 GM INHALER IH SCH (07:45)
[2021-12-19] MEDS: DOCUSATE SODIUM 100 MG CAPSULE PO SCH (07:47)
[2021-12-19] MEDS ORDERED: PANTOPRAZOLE SODIUM 40 MG DR TABLET PO SCH (09:00)
[2021-12-19] MEDS ORDERED: DILTIAZEM HCL CD 240 MG ER CAPSULE PO SCH (09:00)
[2021-12-19] MEDS ORDERED: ATORVASTATIN CALCIUM 40 MG TABLET PO SCH (09:00)
[2021-12-19] MEDS ORDERED: ESCITALOPRAM OXALATE 20 MG TABLET PO SCH (09:00)
[2021-12-19] MEDS ORDERED: MECLIZINE HCL 25 MG TABLET PO ONE (09:45)
[2021-12-19 10:57] LABS: APPEARANCE,URINE CLEAR (CLEAR); BILIRUBIN,URINE NEGATIVE (NEGATIVE); GLUCOSE, URINE (UA) NEGATIVE (NEGATIVE); KETONES,URINE NEGATIVE (NEGATIVE); LEUKOCYTE ESTERASE ,URINE NEGATIVE (NEGATIVE); NITRATE,URINE NEGATIVE (NEGATIVE); OCCULT BLOOD,URINE NEGATIVE (NEGATIVE); PH,URINE 5.5 (5.0-8.0); PROTEIN,URINE TRACE mg/dL (NEGATIVE); SPECIFIC GRAVITIY, URINE 1.018 (1.003-1.030); UROBILINOGEN,URINE <=1.0 mg/dL (<=1.0)
[2021-12-19 10:59] VITALS: BP 117/63
[2021-12-19 11:02] LABS: BACTERIA,URINE None Seen /HPF (None Seen); RBC,URINE None Seen /HPF (0-2); WBC,URINE None Seen /HPF (0-5)
[2021-12-19 11:03] LABS: AMPHET/METH SCREEN,URINE POSITIVE (NEGATIVE); BARBITURATE SCREEN, URINE NEGATIVE (NEGATIVE); BENZODIAZEPINES SCREEN,URINE NEGATIVE (NEGATIVE); CANNABINOID SCREEN,URINE POSITIVE (NEGATIVE); COCAINE SCREEN,URINE POSITIVE (NEGATIVE); METHADONE SCREEN, URINE NEGATIVE (NEGATIVE); OPIATE SCREEN,URINE NEGATIVE (NEGATIVE)
[2021-12-19 11:04] LABS: PHENCYCLIDINE SCREEN,URINE POSITIVE (NEGATIVE)
[2021-12-19] MEDS ORDERED: MECL-134 PO (11:44)
[2021-12-19 16:07] VITALS: BP 131/62
== END 2021-12-19 18:05 | disposition home or self-care (01) ==
LOC: EMS 13:34 → INTOOBSV 17:45 → 5N 17:45 → EMS 18:12
PROVIDERS: ADMIT Internal Medicine; ATTEND Internal Medicine
DX: R07.89 Other chest pain (principal); Z20.822 Contact with and (suspected) exposure to COVID-19; I10 Essential (primary) hypertension; J45.909 Unspecified asthma, uncomplicated; I48.0 Paroxysmal atrial fibrillation; F19.10 Other psychoactive substance abuse, uncomplicated; N17.9 Acute kidney failure, unspecified; D64.9 Anemia, unspecified; Z79.899 Other long term (current) drug therapy
CPT/HCPCS: 36415; 36600; 70450; 71045; 80053; 80307; 81001; 82140; 82805; 83880; 84484; 85025; 87426; 93005; 96372; 99219 ×2; 99285; G0480; J1644; J7030; J3535

== ENCOUNTER 2021-12-21 18:24 | Emergency (ER) | payer OTHER ==
[~2021-12-21] VITALS: Ht 180.3 cm; Wt 127.3 kg
[~2021-12-21 18:24] MED LIST changes: +BACL20TA PO; +DILT-72 PO; -DILT60TA4 PO; -ESCI-8 PO; +ESCI20TA87 PO; +MECL-134 PO; +METO-416 PO; +QUET150T4 PO
[2021-12-21] MEDS ORDERED: MECLIZINE HCL 25 MG TABLET PO ONE (19:15)
[2021-12-21] MEDS ORDERED: ONDANSETRON HCL 4 MG/2 ML VIAL IVP ONE (19:15)
[2021-12-21] MEDS ORDERED: ACETAMINOPHEN 500 MG TABLET PO ONE (19:15)
[2021-12-21 19:38] LABS: BASOPHILS % (AUTO) 0.2 % (0.0-2.0); EOSINOPHILS % (AUTO) 2.1 % (1.0-6.0); HEMOGLOBIN 11.7 g/dL (13.5-17.5); LYMPHOCYTES # (AUTO) 2.5 K/uL (1.0-4.8); LYMPHOCYTES % (AUTO) 41.6 % (22.0-44.0); MEAN CORPUSCULAR HEMOGLOBIN 26.1 pg (26.0-34.0); MEAN CORPUSCULAR HGB CONC 32.4 G/dL (31.0-37.0); MEAN CORPUSCULAR VOLUME 81 fL (80-100); MONOCYTES # (AUTO) 0.4 K/uL (0.1-1.0); MONOCYTES % (AUTO) 6.2 % (2.0-9.0); NEUTROPHILS % (AUTO) 49.9 % (40.0-70.0); PLATELET COUNT (AUTO) 190 K/uL (150-450); RED BLOOD CELL COUNT(AUTO) 4.47 MIL/uL (4.50-5.90); RED CELL DISTRIBUTION WIDTH 15.6 % (11.5-14.5)
[2021-12-21 19:49] LABS: ANION GAP 6 mmol/L (8-16); CALCIUM, TOTAL 8.8 mg/dL (8.8-10.5); CARBON DIOXIDE 30 mmol/L (22-29); CHLORIDE 102 mmol/L (98-107); CREATININE 1.36 mg/dL (0.60-1.30); GLOMERULAR FILTR. RATE CALC > 60 mL/min (>60); GLUCOSE,RANDOM 87 mg/dL (70-110); POTASSIUM 3.8 mmol/L (3.5-5.1); SODIUM SERUM 138 mmol/L (136-145); UREA NITROGEN, BLOOD 12 mg/dL (7-18)
[2021-12-21 19:54] LABS: ALANINE AMINOTRANSFERASE 44 U/L (12-78); ALBUMIN 2.8 g/dL (3.4-5.0); ALKALINE PHOSPHATASE 113 U/L (46-116); ASPARTATE AMINOTRANSFERASE 140 U/L (15-37); BILIRUBIN,TOTAL 0.2 mg/dL (0.1-1.0); LIPASE 86 U/L (73-393); TOTAL PROTEIN, SERUM 7.1 g/dL (6.4-8.2)
[2021-12-21] MEDS ORDERED: MECL-134 PO (22:43)
[2021-12-21 23:00] VITALS: BP 121/89
[2021-12-21 23:02] LABS: COVID AG,FIA SOURCE NASAL SWAB
== END 2021-12-21 23:34 | disposition home or self-care (01) ==
LOC: EMS 18:33
DX: R42 Dizziness and giddiness (principal); F19.10 Other psychoactive substance abuse, uncomplicated; I10 Essential (primary) hypertension; F17.210 Nicotine dependence, cigarettes, uncomplicated; Z88.8 Allergy status to other drugs, medicaments and biological substances; Z79.899 Other long term (current) drug therapy; Z20.822 Contact with and (suspected) exposure to COVID-19
CPT/HCPCS: 36415; 70450; 80053; 83690; 84484; 85025; 87426; 93005; 96374; 99285; G0480; J2405

== ENCOUNTER 2022-01-28 16:51 | Emergency (ER) | payer OTHER ==
[~2022-01-28] VITALS: Ht 180.3 cm; Wt 125.2 kg
[~2022-01-28 16:51] MED LIST changes: -DOCU-350 PO; +DOCU250C99 PO; -QUET150T4 PO; +QUET200T PO
[2022-01-28] MEDS ORDERED: ACETAMINOPHEN 500 MG TABLET PO ONE (17:15)
[2022-01-28 18:07] VITALS: BP 149/88
== END 2022-01-28 18:09 | disposition home or self-care (01) ==
LOC: EMS 16:51
DX: R07.89 Other chest pain (principal); I10 Essential (primary) hypertension; F12.90 Cannabis use, unspecified, uncomplicated; F19.90 Other psychoactive substance use, unspecified, uncomplicated; F11.90 Opioid use, unspecified, uncomplicated; F17.210 Nicotine dependence, cigarettes, uncomplicated; Z91.013 Allergy to seafood; Z88.8 Allergy status to other drugs, medicaments and biological substances
CPT/HCPCS: 71045; 99283

== ENCOUNTER 2022-03-07 19:05 | Emergency (ER) | payer OTHER | END 2022-03-07 19:10 | disposition left against medical advice (07) | LOC: EMS 19:05 | DX: Z53.21 Procedure and treatment not carried out due to patient leaving prior to being seen by health care provider (principal) ==

== ENCOUNTER 2022-03-08 00:09 | Emergency (ER) | payer OTHER ==
[~2022-03-08] VITALS: Ht 180.3 cm; Wt 125.2 kg
[2022-03-08 00:50] VITALS: BP 142/101
== END 2022-03-08 01:14 | disposition home or self-care (01) ==
LOC: EMS 00:11
DX: Z02.89 Encounter for other administrative examinations (principal); I10 Essential (primary) hypertension; F17.210 Nicotine dependence, cigarettes, uncomplicated; F12.10 Cannabis abuse, uncomplicated; F11.10 Opioid abuse, uncomplicated; F15.90 Other stimulant use, unspecified, uncomplicated; F19.10 Other psychoactive substance abuse, uncomplicated; Z95.0 Presence of cardiac pacemaker
CPT/HCPCS: 99283; Z7502